=== PATIENT | male | born 1955 | race Caucasian/White ===

== ENCOUNTER 2020-04-28 15:31 | Emergency (ER) | payer SELFPAY ==
[~2020-04-28] VITALS: Ht 172.7 cm; Wt 70.4 kg
[~2020-04-28 15:31] MED LIST: ACET500T68 PO; ALPR0.5T PO; HYDR-3165 PO; IBUP800T19 PO; LEVO500T59 PO; OMEP20CA16 PO; PRED-220 PO; VENL75CA PO
[2020-04-28 15:35] VITALS: BP 159/93
[2020-04-28] MEDS ORDERED: IOHEXOL 300 MG/ML 75 ML VIAL. IV ONE (15:45)
--- NOTE | 2020-04-28 15:52 | PHYS DOC ---
Past History Past Medical History: Hypertension, Other Additional Past Medical Histor: ulcerative colitis Past Surgical History: Other Smoking: Non-smoker Alcohol Use: None Drug Use: Methamphetamine General Adult EDM: Chief Complaint: RECTAL BLEED HPI: HPI: 64-year-old male past medical history of ulcerative colitis and hypertension (s/p colectomy with ileal anal anastomosis -per 2015 ct a/p), presents the ED brought in by EMS with complaints of bright red blood rectal bleeding starting yesterday. Patient reports his UC was cured by surgery 11 years ago and has no routine primary care. Has not required any transfusions in the past 11 years. Does not take any routine medications. Denies any anticoagulants. Does report some associated mild lower abdominal pain. History of hemorrhoids. States he moved here two months ago from [place]. Review of Systems: Review of Systems: Constitutional: Denies fever or chills Eyes: Denies change in visual acuity HENT: Denies nasal congestion or sore throat Respiratory: Denies cough or shortness of breath Cardiovascular: Denies chest pain or edema GI: Denies melena, Hematemesis, nausea or vomiting : Denies dysuria Musculoskeletal: Denies back pain or joint pain Integument: Denies rash Neurologic: Denies headache, focal weakness or sensory changes Endocrine: Denies polyuria or polydipsia Lymphatic: Denies swollen glands Psychiatric: Denies depression or anxiety Allergies: Allergies: Allergies Coded Allergies Type Severity Reaction Last Updated Verified No Known Drug Allergies 08/18/15 No Physical Exam: PE: Constitutional: Well developed, well nourished, no acute distress, non-toxic appearance. HENT: Normocephalic, atraumatic, Eyes: EOMI, conjunctiva normal, no discharge. Neck: Normal range of motion, supple, Cardiovascular: S1/2 present, regular rhythm Lungs & Thorax: Speaking in full sentences, bilateral equal chest rise, no tachypnea or increased work of breathing Abdomen: soft, no tenderness, large scar Skin: Warm, dry, no erythema, no rash. [] Back: No tenderness, no CVA tenderness. [] Extremities: No tenderness, no cyanosis, no edema Neurologic: Alert and oriented X 3, normal motor function, normal sensory function, no focal deficits noted. [] Psychologic: Affect normal, judgement normal, mood normal. [] : Chaperoned by male RN, no individuals, no active bleeding, external nonthrombosed hemorrhoids, pt with signficant valsalva-kelsie < 1inch into rectum, yellow stool, no brbpr Current Patient Data: Vital Signs: Vital Signs Date Time Temp Pulse Resp B/P (MAP) Pulse Ox O2 Delivery O2 Flow Rate FiO2 04/28/20 15:35 98.1 84 16 159/93 (115) 99 Room Air EKG: EKG: [] Radiology/Procedures: Radiology/Procedures: IMAGING REPORT Signed PATIENT: ARETHA LI ACCOUNT: [id number] : 1955 LOCATION: ER AGE: 64 SEX: M EXAM STATUS: REG ER ORD. PHYSICIAN: GALA MURILLO DO REASON: hematochezia PROCEDURE: CT ABD PELV W/ IV CONTRST ONLY CT abdomen and pelvis with contrast PQRS statement: CT scans at this facility use dose reduction including either automated exposure control, iterative reconstructions, and /or weight based radiation dosing via mA and kV modification when appropriate to reduce radiation dose to as low as reasonably achievable. Contrast: 75 mL Omnipaque 300 intravenous contrast HISTORY: Hematochezia. History of ulcerative colitis and colectomy. Abdomen findings: 4 mm solid nodule right middle lobe image [address] chest imaging from 2016 considered benign. Lumbar scoliosis and disc bulges and disc osteophytes with spinal canal stenoses. Left L5 spondylolysis. Liver, gallbladder, pancreas, spleen, adrenal glands unremarkable. Bilateral fluid density renal cysts with densities of less than 10 units. Presumed surgical changes of total colectomy with ileoanal J-pouch anastomosis. No obstruction or inflammation the GI tract. No abdominal fluid or adenopathy. Pelvis findings: Mild distention of the bladder. Mild fluid distention of the ileoanal J-pouch. No inflammatory change of the J-pouch. Prostate and bones are unremarkable. No pelvic fluid or edema or adenopathy. IMPRESSION: 1. No acute process. Postoperative change as described above. 2. Incidental findings as described above. Electronically signed by: Lucia Esparza MD (04/28/2020 4:10 PM) [facility] [place] DICTATED AND SIGNED BY: LUCIA ESPARZA MD DATE: 04/28/20 1610 CC: LORIN PATTEN; GALA MURILLO DO ~ Heart Score: Risk Factors: Risk Factors: DM, Current or recent (<one month) smoker, HTN, HLP, family history of CAD, obesity. Risk Scores: Score 0 - 3: 2.5% MACE over next 6 weeks - Discharge Home Score 4 - 6: 20.3% MACE over next 6 weeks - Admit for Clinical Observation Score 7 - 10: 72.7% MACE over next 6 weeks - Early Invasive Strategies Course & Med Decision Making: Course & Med Decision Making Pertinent Labs and Imaging studies reviewed. (See chart for details) Concern for hematochezia suspect possible colitis related to hemorrhoids, no gross hematuria. H/H stable from 2017. Patient hemodynamically stable with mild hypertension but significantly symptoms of endorgan damage. CT imaging with no abscess or fistula. Strict ED return precautions were given for persistent or brisk rectal bleeding, melena, severe abdominal or back pain, chest pain, confusion or exertional dyspnea. Encouraged urgent outpatient follow-up with PMD and GI. Life-threatening processes were considered but are low suspicion at this time, given history and physical exam. Pt was educated on all prescription medications and adverse effects. All patient's questions were answered and pt was stable at time of discharge. Life/limb-threatening differential includes but is not limited to, aortic dissection, aortic aneurysm, acute coronary syndrome, surgical abdomen (appendicitis, cholecystitis, ischemic bowel, strangulated hernia, etc), bowel obstruction or volvulus, bladder outlet obstruction, gastrointestinal bleeding, inflammatory bowel disease, peptic ulcer disease, sepsis, diverticular disease, ureterolithiasis, nephrolithiasis, ovarian or testicular torsion, ectopic , vaginal hemorrhage, or genitourinary infection. I spoken with the patient and her caregivers. I explained the patient's condition, diagnoses and treatment plan based on the information available to me at this time. I have answered the patient and her caregiver's questions and addressed any concerns. The patient and her caregivers have a good understanding of patient's diagnosis, condition and treatment plan as can be expected at this point. Vital signs have been stable. Patient's condition is stable and appropriate for discharge from the emergency department. Patient will pursue further outpatient evaluation with primary care physician or other designated or consulting physician as outlined in the discharge instructions. The patient and/or caregivers are agreeable to this plan of care and follow-up instructions have been explained in detail. The patient and/or caregivers have received these instructions in written form and have expressed an understanding of the discharge instructions. The patient and/or caregivers are aware that any significant change of condition or worsening of symptoms should prompt immediate return to this or the closest emergency department or call to 911Parth Kay Disclaimer: Rahul Disclaimer: This electronic medical record was generated, in whole or in part, using a voice recognition dictation system. Departure Departure: Impression: Primary Impression: Hematochezia Additional Impression: External hemorrhoids without complication Disposition: 01 DC HOME SELF CARE/HOMELESS Condition: STABLE Referrals: LORIN PATTEN (PCP) in 1 week for repeat hemoglobin Patient Instructions: Rectal Bleeding Additional Instructions: FOLLOW UP WITH GASTROENTEROLOGY: [address], [address], [place] [address] EMERGENCY DEPARTMENT GENERAL DISCHARGE INSTRUCTIONS Thank you for coming to [facility] (ED) today and trusting us with you care. We trust that you had a positivie experience in our Emergency Department. If you wish to speak to the department management, you may call the director at [phone]. YOUR FOLLOW UP INSTRUCTIONS ARE FOLLOWS: 1. Do you have a private Doctor? If you do not have a private doctor, please ask for a resource list of physicians or clinics that may be able to assist you with follow up care. 2. The Emergency Physician has interpreted your x-rays. The X-Ray specialist will also review them. If there is a change in the findings, you will be notified in 48 hours when at all possible. 3. A lab test or culture has been done, your results will be reviewed and you will be notified if you need a change in treatment. ADDITIONAL INSTRUCTIONS AND INFORMATION: 1. Your care today has been supervised by a physician who is specially trained in emergency care. Many problems require more than one evaluation for a complete diagnosis and treatment. We recommend that you schedule your follow up appointment as recommended to ensure complete treatment of you illness or injury. If you are unable to obtain follow up care and continue to have a problem, or if your condition worsens, we recommend that you return to the ED. 2. We are not able to safely determine your condition over the phone nor are we able to give sound medical advice over the phone. For these safety reasons, if you call for medical advice we will ask you to come to the ED for further evaluation. 3. If you have any questions regarding these discharge instructions please call the ED at [phone]. SAFETY INFORMATION: In the interest of safety, wellness, and injury prevention; we encourage you to wear your sealbelt, if you smoke; quite smoking, and we encourage family to use a protective helmet for bicycling and other sporting events that present an increased risk for head injury. IF YOUR SYMPTOMS WORSEN OR NEW SYMPTOMS DEVELOP, OR YOU HAVE CONCERNS ABOUT YOUR CONDITION; OR IF YOUR CONDITION WORSENS WHILE YOU ARE WAITING FOR YOUR FOLLOW UP APPOINTMENT; EITHER CONTACT YOUR PRIMARY CARE DOCTOR, THE PHYSICIAN WHOSE NAME AND NUMBER YOU WERE GIVEN, OR RETURN TO THE ED IMMEDIATELY. GALA CASTILLO DO Apr 28, 2020 15:52
[2020-04-28 16:07] LABS: BASO % 1 % (0-3); EOS # 0.2 x10^3/uL (0.0-0.7); EOS % 4 % (0-3); HEMATOCRIT 39.5 % (39.0-53.0); HEMOGLOBIN 12.9 g/dL (13.0-17.5); LYMPH # 2.1 x10^3/uL (1.0-4.8); LYMPH % 33 % (24-48); MEAN CORPUSCULAR HEMOGLOBIN 30 pg (25-35); MEAN CORPUSCULAR HGB CONC 33 g/dL (31-37); MEAN CORPUSCULAR VOLUME 91 fL (79-100); MONO # 0.6 x10^3/uL (0.0-1.1); MONO % 9 % (0-9); NEUT # 3.5 x10^3uL (1.8-7.7); NEUT % 54 % (31-73); PLATELET COUNT 221 x10^3/uL (140-400); RED BLOOD COUNT 4.35 x10^6/uL (4.30-5.70); RED CELL DISTRIBUTION WIDTH 15.1 % (11.5-14.5); WHITE BLOOD COUNT 6.5 x10^3/uL (4.0-11.0)
[2020-04-28 16:08] LABS: FECAL OB PT POSITIVE (NEG)
[2020-04-28 16:11] LABS: CALCIUM 8.5 mg/dL (8.5-10.1); GFR 75.5; POTASSIUM 3.5 mmol/L (3.5-5.1)
--- NOTE | 2020-04-28 16:12 | RAD ---
CT abdomen and pelvis with contrast PQRS statement: CT scans at this facility use dose reduction including either automated exposure control, iterative reconstructions, and /or weight based radiation dosing via mA and kV modification when appropriate to reduce radiation dose to as low as reasonably achievable. Contrast: 75 mL Omnipaque 300 intravenous contrast HISTORY: Hematochezia. History of ulcerative colitis and colectomy. Abdomen findings: 4 mm solid nodule right middle lobe image [address] chest imaging from 2016 considered benign. Lumbar scoliosis and disc bulges and disc osteophytes with spinal canal stenoses. Left L5 spondylolysis. Liver, gallbladder, pancreas, spleen, adrenal glands unremarkable. Bilateral fluid density renal cysts with densities of less than 10 units. Presumed surgical changes of total colectomy with ileoanal J-pouch anastomosis. No obstruction or inflammation the GI tract. No abdominal fluid or adenopathy. Pelvis findings: Mild distention of the bladder. Mild fluid distention of the ileoanal J-pouch. No inflammatory change of the J-pouch. Prostate and bones are unremarkable. No pelvic fluid or edema or adenopathy. IMPRESSION: 1. No acute process. Postoperative change as described above. 2. Incidental findings as described above. Electronically signed by: Oswaldo Esparza MD (04/28/2020 4:10 PM) [facility]
[2020-04-28 16:17] LABS: ALBUMIN 3.5 g/dL (3.4-5.0); ALBUMIN/GLOBULIN RATIO 1.1 (1.0-1.7); TOTAL BILIRUBIN 0.2 mg/dL (0.2-1.0); TOTAL PROTEIN 6.6 g/dL (6.4-8.2)
== END 2020-04-28 16:56 | disposition home or self-care (01) ==
LOC: ER 15:31
DX: K64.4 Residual hemorrhoidal skin tags (principal); K92.1 Melena; I10 Essential (primary) hypertension; F15.10 Other stimulant abuse, uncomplicated; Z90.49 Acquired absence of other specified parts of digestive tract
CPT/HCPCS: 36415; 74177; 80053; 82274; 85025; 85610; 85730; 99285; Q9967

== ENCOUNTER 2020-06-10 23:42 | Emergency (ER) | payer SELFPAY ==
[~2020-06-10] VITALS: Ht 172.7 cm; Wt 66.6 kg
--- NOTE | 2020-06-11 00:07 | PHYS DOC ---
Past History Past Medical History: Hypertension, Other Additional Past Medical Histor: ulcerative colitis Past Surgical History: Other (Diverging colectomy 2/2 ulcerative colitis) Smoking: Non-smoker Alcohol Use: None Drug Use: Methamphetamine Adult General HPI HPI Patient is a 64-year-old male [facility]. This is an acute on chronic problem. Nothing known makes better or worse. Patient has history of ulcerative colitis with significant abdominal surgeries in the past which sounds like diverting colostomy with subsequent takedown back to rectum. He was covered in outpatient setting by primary care physician and electromechanical inspector but has not seen a electromechanical inspector in numerous years, last lower endoscopy performed approximately 10 years ago around the time of his surgery. Only medical problem at present is hypertension, no other issues. Not on any blood thinners. States he noticed on and off blood coming from rectum during bowel movements yesterday. States he has seen both light and darker colored blood that is present on both his toilet paper and in stool, states it is painful to wipe. He is unsure if this is consistent with prior ulcerative colitis flareups or not. Bleeding has been mild but has continued for past 24 hours intermittently only when defecating which concerned him prompting him to come in for evaluation. There is no fever, COVID-19 contact, dizziness, lightheadedness, falls, syncope, chest pain, shortness of breath, he admits vague 3/10 severity left lower quadrant abdominal pain without any nausea, no urinary symptoms, no constipation or other changes with defecation. He does not abuse alcohol, denies any other illicit dr ug use Review of Systems Review of Systems Fourteen body systems of review of systems have been reviewed. See HPI for pertinent positives and negative responses, other al all other systems are negative, non-pertinent or non-contributory Allergies Allergies Allergies Coded Allergies Type Severity Reaction Last Updated Verified No Known Drug Allergies 08/18/15 No Physical Exam Physical Exam Constitutional: Well developed, well nourished, no acute distress, non-toxic appearance. [place] hospital bed HENT: Normocephalic, atraumatic, bilateral external ears normal, oropharynx moist, no oral exudates, nose normal. Eyes: PERRLA, EOMI, conjunctiva normal, no discharge. Neck: Normal range of motion, no tenderness, supple, no stridor. Cardiovascular: Heart rate regular, sinus rhythm, no murmurs rubs or gallops Lungs & Thorax: Bilateral breath sounds clear to auscultation Abdomen: Bowel sounds normal, soft, no tenderness, no masses, no pulsatile masses. Nonsurgical abdomen, no peritoneal signs. Rectal exam performed, significant for x2 external hemorrhoids which are nonthrombosed, anal sphincter intact, no other palpable abnormalities within rectal vault Skin: Warm, dry, no erythema, no rash. Back: No tenderness, no CVA tenderness. Extremities: No tenderness, no cyanosis, no clubbing, ROM intact, no edema. Neurologic: Alert and oriented X 3, grossly normal motor & sensory function, no focal deficits noted. Unremarkable gait Psychologic: Affect normal, judgement normal, mood normal. Current Patient Data Vital Signs Vital Signs Date Time Temp Pulse Resp B/P (MAP) Pulse Ox O2 Delivery O2 Flow Rate FiO2 06/10/20 23:45 98.0 58 20 163/85 (111) 100 Room Air Lab Results Laboratory Tests Test 06/11/20 00:02 White Blood Count 7.3 x10^3/uL Red Blood Count 4.60 x10^6/uL Hemoglobin 13.7 g/dL Hematocrit 41.3 % Mean Corpuscular Volume 90 fL Mean Corpuscular Hemoglobin 30 pg Mean Corpuscular Hemoglobin Concent 33 g/dL Red Cell Distribution Width 14.1 % Platelet Count 254 x10^3/uL Neutrophils (%) (Auto) 62 % Lymphocytes (%) (Auto) 31 % Monocytes (%) (Auto) 8 % Stool Occult Blood Negative Sodium Level 137 mmol/L Potassium Level 3.6 mmol/L Chloride Level 102 mmol/L Carbon Dioxide Level 25 mmol/L Anion Gap 10 Blood Urea Nitrogen 10 mg/dL Creatinine 1.2 mg/dL Estimated GFR (Cockcroft-Gault) 61.1 Glucose Level 101 mg/dL Calcium Level 8.9 mg/dL EKG EKG [] Radiology/Procedures Radiology/Procedures [] Heart Score HEART Score for Chest Pain: HEART Score for Chest Pain Response (Comments) Value History Slighlty/Non-Suspicious 0 Age >45 - < 65 1 Risk Factors 1 or 2 Risk Factors 1 Total 2 Risk Factors: Risk Factors: DM, Current or recent (<one month) smoker, HTN, HLP, family hi story of CAD, obesity. Risk Scores: Risk Factors: DM, Current or recent (<one month) smoker, HTN, HLP, family history of CAD, obesity. Course & Med Decision Making Course & Med Decision Making Discussed with the patient all findings and diagnostic testing. I discussed most likely diagnosis of rectal bleeding, likely due to external hemorrhoids noticed on physical exam. Patient hemodynamically stable, physical exam nonconcerning, I discussed little utility in further diagnostic work-up in ER setting I stressed need for close outpatient follow-up to review today's ER visit. Strict return precautions were also discussed at length with good understanding by patient. Patient voiced understanding and agreement with the plan. Patient knows to come back for repeat evaluation if concerning signs or symptoms present prior to outpatient follow-up. Hemodynamically stable, ambulatory and well- appearing at time of disposition. Dragon Disclaimer Dragon Disclaimer This electronic medical record was generated, in whole or in part, using a voice recognition dictation system. Departure Departure: Impression: Primary Impression: Rectal bleeding Disposition: 01 DC HOME SELF CARE/HOMELESS Condition: GOOD Referrals: LORIN PATTEN (PCP) Patient Instructions: Hemorrhoids Additional Instructions: You were seen for rectal bleeding. As discussed, likely sources your external hemorrhoids. With that said, this might be an acute presentation of more concerning pathology especially given your history of ulcerative colitis status post serious abdominal surgeries. Your vitals, physical exam and diagnostic work-up in ER were nonconcerning for any emergent and/or surgical issues. You should avoid any alcohol or NSAIDS until you follow up with your PCP in addition to the GI clinic. Return to the ED if you develop heavy bleeding, fever, pain, lightheadedness, chest pain, shortness of breath, black/bloody vomiting, or any other new or concerning symptoms. You need to call the GI clinic to schedule your follow up appointment. They will schedule you a colonoscopy or will discuss other options for you at that time to look for the source of bleeding and rule out cancer or other serious causes of bleeding. JANA WHALEN DO Jun 11, 2020 00:07
[2020-06-11 00:18] LABS: CALCIUM 8.9 mg/dL (8.5-10.1); CREATININE 1.2 mg/dL (0.7-1.3); GFR 61.1; POTASSIUM 3.6 mmol/L (3.5-5.1)
[2020-06-11 00:20] LABS: HEMOGLOBIN 13.7 g/dL (13.0-17.5); WHITE BLOOD COUNT 7.3 x10^3/uL (4.0-11.0)
[2020-06-11 00:21] LABS: HEMATOCRIT 41.3 % (39.0-53.0); MEAN CORPUSCULAR HEMOGLOBIN 30 pg (25-35); MEAN CORPUSCULAR HGB CONC 33 g/dL (31-37); MEAN CORPUSCULAR VOLUME 90 fL (79-100); PLATELET COUNT 254 x10^3/uL (140-400); RED CELL DISTRIBUTION WIDTH 14.1 % (11.5-14.5)
[2020-06-11 00:22] LABS: LYMPH % 31 % (24-48); MONO % 8 % (0-9); NEUT % 62 % (31-73)
[2020-06-11 00:24] LABS: FECAL OB PT NEGATIVE (NEG)
[2020-06-11 00:25] VITALS: BP 155/88
== END 2020-06-11 00:47 | disposition home or self-care (01) ==
LOC: ER 23:42
DX: K62.5 Hemorrhage of anus and rectum (principal); K64.4 Residual hemorrhoidal skin tags; R10.32 Left lower quadrant pain; I10 Essential (primary) hypertension
CPT/HCPCS: 36415; 80048; 82274; 85025; 99284

== ENCOUNTER 2020-06-22 16:32 | Emergency (ER) | payer SELFPAY ==
[~2020-06-22] VITALS: Ht 172.7 cm; Wt 68.3 kg
[2020-06-22 17:49] LABS: BASO % 1 % (0-3); EOS # 0.4 x10^3/uL (0.0-0.7); EOS % 6 % (0-3); HEMATOCRIT 40.9 % (39.0-53.0); HEMOGLOBIN 13.4 g/dL (13.0-17.5); LYMPH # 1.7 x10^3/uL (1.0-4.8); LYMPH % 27 % (24-48); MEAN CORPUSCULAR HEMOGLOBIN 29 pg (25-35); MEAN CORPUSCULAR HGB CONC 33 g/dL (31-37); MEAN CORPUSCULAR VOLUME 90 fL (79-100); MONO # 0.3 x10^3/uL (0.0-1.1); MONO % 6 % (0-9); NEUT # 3.6 x10^3uL (1.8-7.7); NEUT % 60 % (31-73); PLATELET COUNT 221 x10^3/uL (140-400); RED BLOOD COUNT 4.55 x10^6/uL (4.30-5.70); RED CELL DISTRIBUTION WIDTH 14.9 % (11.5-14.5); WHITE BLOOD COUNT 6.1 x10^3/uL (4.0-11.0)
[2020-06-22 17:52] LABS: CALCIUM 8.7 mg/dL (8.5-10.1); GFR 75.5; POTASSIUM 4.1 mmol/L (3.5-5.1)
[2020-06-22] MEDS ORDERED: IV NORMAL SALINE 1,000ML 1,000 ML IV ONE (18:00)
[2020-06-22] MEDS ORDERED: ONDANSETRON PF 4 MG/2 ML VIAL. IVP ONE (18:00)
[2020-06-22] MEDS ORDERED: MORPHINE SULFATE 4 MG/ML DISP.SYRIN. IV ONE ×2 (18:00→19:15)
--- NOTE | 2020-06-22 18:13 | EKG ---
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
--- NOTE | 2020-06-22 18:25 | PHYS DOC ---
Past History Past Medical History: Other Additional Past Medical Histor: Ulcerative colitis Past Surgical History: Other Additional Past Surgical Histo: abdominal surgery with partial intestinal removal Smoking: Non-smoker Alcohol Use: None Drug Use: Methamphetamine General Adult EDM: Chief Complaint: WEAKNESS/GENERALIZED HPI: HPI: Patient is a 64 year old male who presents with abdominal pain and bright red rectal bleeding for the last couple of days. Patient has a history of UC and bowel resection 14 years ago. Patient denies n/v/d or fever. Reporting pain 01/18.Patient denies any other medical history. Review of Systems: Review of Systems: Constitutional: Denies fever or chills Eyes: Denies change in visual acuity HENT: Denies nasal congestion or sore throat Respiratory: Denies cough or shortness of breath Cardiovascular: Denies chest pain or edema GI: Reports abdominal pain,rectal pain, bright red rectal bleeding, denies n/v/d : Denies dysuria Musculoskeletal: Denies back pain or joint pain Integument: Denies rash Neurologic: Denies headache, focal weakness or sensory changes Endocrine: Denies polyuria or polydipsia Lymphatic: Denies swollen glands Psychiatric: Denies depression or anxiety Current Medications: Current Meds: Current Medications Medications (Trade) Dose Ordered Sig/Celeste Start Time Stop Time Status Last Admin Dose Admin Morphine Sulfate (Morphine 4mg Syringe) 4 mg 1X ONCE 06/22/20 18:00 06/22/20 18:01 DC 06/22/20 18:11 4 MG Ondansetron HCl (Zofran) 4 mg 1X ONCE 06/22/20 18:00 06/22/20 18:01 DC 06/22/20 18:10 4 MG Sodium Chloride 1,000 ml @ 1,000 mls/hr 1X ONCE 06/22/20 18:00 06/22/20 18:59 Allergies: Allergies: Allergies Coded Allergies Type Severity Reaction Last Updated Verified No Known Drug Allergies 06/11/20 No Physical Exam: PE: Constitutional: Well developed, well nourished, no acute distress, non-toxic appearance. [] HENT: Normocephalic, atraumatic, bilateral external ears normal, oropharynx moist, no oral exudates, nose normal. [] Eyes: PERRLA, EOMI, conjunctiva normal, no discharge. [] Neck: Normal range of motion, no tenderness, supple, no stridor. [] Cardiovascular:Heart rate regular rhythm, no murmur [] Lungs & Thorax: Bilateral breath sounds clear to auscultation [] Abdomen: Bowel sounds normal, soft, no tenderness, no masses, no pulsatile masses. [] Skin: Warm, dry, no erythema, no rash. [] Back: No tenderness, no CVA tenderness. [] Extremities: No tenderness, no cyanosis, no clubbing, ROM intact, no edema. [] Neurologic: Alert and oriented X 3, normal motor function, normal sensory function, no focal deficits noted. [] Psychologic: Affect normal, judgement normal, mood normal. [] Current Patient Data: Labs: Laboratory Tests Test 06/22/20 16:55 White Blood Count 6.1 x10^3/uL (4.0-11.0) Red Blood Count 4.55 x10^6/uL (4.30-5.70) Hemoglobin 13.4 g/dL (13.0-17.5) Hematocrit 40.9 % (39.0-53.0) Mean Corpuscular Volume 90 fL (79-100) Mean Corpuscular Hemoglobin 29 pg (25-35) Mean Corpuscular Hemoglobin Concent 33 g/dL (31-37) Red Cell Distribution Width 14.9 % (11.5-14.5) H Platelet Count 221 x10^3/uL (140-400) Neutrophils (%) (Auto) 60 % (31-73) Lymphocytes (%) (Auto) 27 % (24-48) Monocytes (%) (Auto) 6 % (0-9) Eosinophils (%) (Auto) 6 % (0-3) H Basophils (%) (Auto) 1 % (0-3) Neutrophils # (Auto) 3.6 x10^3uL (1.8-7.7) Lymphocytes # (Auto) 1.7 x10^3/uL (1.0-4.8) Monocytes # (Auto) 0.3 x10^3/uL (0.0-1.1) Eosinophils # (Auto) 0.4 x10^3/uL (0.0-0.7) Basophils # (Auto) 0.0 x10^3/uL (0.0-0.2) Sodium Level 139 mmol/L (136-145) Potassium Level 4.1 mmol/L (3.5-5.1) Chloride Level 106 mmol/L (98-107) Carbon Dioxide Level 24 mmol/L (21-32) Anion Gap 9 (6-14) Blood Urea Nitrogen 16 mg/dL (8-26) Creatinine 1.0 mg/dL (0.7-1.3) Estimated GFR (Cockcroft-Gault) 75.5 Glucose Level 111 mg/dL (70-99) H Calcium Level 8.7 mg/dL (8.5-10.1) Vital Signs: Vital Signs Date Time Temp Pulse Resp B/P (MAP) Pulse Ox O2 Delivery O2 Flow Rate FiO2 06/22/20 18:11 Room Air 06/22/20 16:40 98.3 67 16 140/64 (89) 98 EKG: EKG: [] Radiology/Procedures: Radiology/Procedures: []Examination: CT of the abdomen pelvis without contrast HISTORY: History of bloody stools, left lower quadrant abdominal pain COMPARISON: 04/28/2020 TECHNIQUE: Axial CT images of the abdomen pelvis were performed without contrast. Coronal and sagittal reformats performed Exposure: One or more of the following individualized dose reduction techniques were utilized for this examination: 1. Automated exposure control 2. Adjustment of the mA and/or kV according to patient size 3. Use of iterative reconstruction technique FINDINGS: 4 mm nodule right middle lobe of the lung. Linear atelectasis right lung base. No evidence of free air identified in the abdomen The evaluation of the solid organs is limited due to lack of IV contrast. The evaluation of bowel is limited due to lack of oral contrast. The visualized noncontrasted liver, spleen, adrenals grossly appears unremarkable. The gallbladder is mildly distended. Mild fluid distended small bowel loops. Surgical changes of total colectomy with ileoanal J-pouch anastomosis identified. There is mild fat stranding identified about the J-pouch. Urinary bladder is mildly distended Bilateral renal cysts are unchanged. Moderate degenerative changes lumbar spine most at L2-L3 vertebral level. IMPRESSION: 1. Surgical changes of total colectomy with ileoanal J- identified. There is mild fat stranding identified about the J-pouch, nonspecific could be postsurgical changes or inflammatory changes. 2. Mild fluid distended small bowel loops could be due to ileus or enteritis. 3. 4 mm nodule right middle lobe of the lung. Follow-up per Fleischner Society guidelines with a follow-up CT in 6-12 months. 4. Bilateral renal cysts. Electronically signed by: Tyrone Miller MD (06/22/2020 7:04 PM) [id number] Heart Score: Risk Factors: Risk Factors: DM, Current or recent (<one month) smoker, HTN, HLP, family history of CAD, obesity. Risk Scores: Score 0 - 3: 2.5% MACE over next 6 weeks - Discharge Home Score 4 - 6: 20.3% MACE over next 6 weeks - Admit for Clinical Observation Score 7 - 10: 72.7% MACE over next 6 weeks - Early Invasive Strategies Course & Med Decision Making: Course & Med Decision Making Pertinent Labs and Imaging studies reviewed. (See chart for details) []Patient is a 64 year old male who presents with abdominal pain and bright red rectal bleeding for the last couple of days. Patient has a history of UC and bowel resection 14 years ago. Patient denies n/v/d or fever. Patient denies any other medical history. Will order occult, CT abdomen and pelvis. Patient given morphine and zofran for pain and nausea. All labs unremarkable. Hgb negative for acute blood loss. CT abdomen Surgical changes of total colectomy with ileoanal J- identified. There is mild fat stranding identified about the J-pouch, nonspecific could be postsurgical changes or inflammatory changes.Mild fluid distended small bowel loops could be due to ileus or enteritis.4 mm nodule right middle lobe of the lung. Follow-up per Fleischner Society guidelines with a follow-up CT in 6-12 months.Bilateral renal cysts. Will discharge home with antibiotics and pain medication and steroids. Patient to follow up with GI and to return with worsening symptoms. Patients pain is controlled and he is hemodynamically stable. Patient able to ambulate on his own leaving ED. Dragon Disclaimer: Rahul Disclaimer: This electronic medical record was generated, in whole or in part, using a voice recognition dictation system. Departure Departure: Impression: Primary Impression: Abdominal pain Qualified Codes: R10.84 - Generalized abdominal pain Additional Impression: Diverticulitis Disposition: 01 DC HOME SELF CARE/HOMELESS Condition: GOOD Referrals: LAURA RANKIN MD Patient Instructions: Abdominal Pain Additional Instructions: EMERGENCY DEPARTMENT GENERAL DISCHARGE INSTRUCTIONS Thank you for coming to [facility] (ED) today and trusting us with you care. We trust that you had a positivie experience in our Emergency Department. If you wish to speak to the department management, you may call the director at [phone]. YOUR FOLLOW UP INSTRUCTIONS ARE FOLLOWS: 1. Do you have a private Doctor? If you do not have a private doctor, please ask for a resource list of physicians or clinics that may be able to assist you with fo llow up care. 2. The Emergency Physician has interpreted your x-rays. The X-Ray specialist will also review them. If there is a change in the findings, you will be notified in 48 hours when at all possible. 3. A lab test or culture has been done, your results will be reviewed and you will be notified if you need a change in treatment. ADDITIONAL INSTRUCTIONS AND INFORMATION: 1. Your care today has been supervised by a physician who is specially trained in emergency care. Many problems require more than one evaluation for a complete diagnosis and treatment. We recommend that you schedule your follow up appointment as recommended to ensure complete treatment of you illness or injury. If you are unable to obtain follow up care and continue to have a problem, or if your condition worsens, we recommend that you return to the ED. 2. We are not able to safely determine your condition over the phone nor are we able to give sound medical advice over the phone. For these safety reasons, if you call for medical advice we will ask you to come to the ED for further evaluation. 3. If you have any questions regarding these discharge instructions please call the ED at [phone]. SAFETY INFORMATION: In the interest of safety, wellness, and injury prevention; we encourage you to wear your sealbelt, if you smoke; quite smoking, and we encourage family to use a protecti ve helmet for bicycling and other sporting events that present an increased risk for head injury. IF YOUR SYMPTOMS WORSEN OR NEW SYMPTOMS DEVELOP, OR YOU HAVE CONCERNS ABOUT YOUR CONDITION; OR IF YOUR CONDITION WORSENS WHILE YOU ARE WAITING FOR YOUR FOLLOW UP APPOINTMENT; EITHER CONTACT YOUR PRIMARY CARE DOCTOR, THE PHYSICIAN WHOSE NAME AND NUMBER YOU WERE GIVEN, OR RETURN TO THE ED IMMEDIATELY. Scripts Hydrocodone/Acetaminophen (Hydrocodone-Acetamin 5-325 mg) 1 Each Tablet 1 EACH PO Q4-6HRS PRN for PAIN for 4 Days, #20 TAB Prov: JOHANNY LOPEZ PANEL MONITOR 06/22/20 Prednisone (PREDNISONE) 50 Mg Tablet 50 MG PO DAILY for inflammation for 5 Days, #5 TAB Prov: JOHANNY LOPEZ PANEL MONITOR 06/22/20 Ciprofloxacin (CIPRO) 500 Mg/5 Ml Josseline.mc.rec 500 MG PO BID for diverticulitis for 10 Days, #20 MISC Prov: JOHANNY LOPEZ PANEL MONITOR 06/22/20 Metronidazole (METRONIDAZOLE) 500 Mg Tablet 500 MG PO Q8HRS for diverticulitis for 10 Days, #30 TAB Prov: JOHANNY LOPEZ PANEL MONITOR 06/22/20 JOHANNY LOPEZ APRN Jun 22, 2020 18:25
--- NOTE | 2020-06-22 19:07 | RAD ---
Examination: CT of the abdomen pelvis without contrast HISTORY: History of bloody stools, left lower quadrant abdominal pain COMPARISON: 04/28/2020 TECHNIQUE: Axial CT images of the abdomen pelvis were performed without contrast. Coronal and sagitta l reformats performed Exposure: One or more of the following individualized dose reduction techniques were utilized for thi s examination: 1. Automated exposure control 2. Adjustment of the mA and/or kV according to patient size 3. Use of iterative reconstruction technique FINDINGS: 4 mm nodule right middle lobe of the lung. Linear atelectasis right lung base. No evidence of free ai r identified in the abdomen The evaluation of the solid organs is limited due to lack of IV contrast. The evaluation of bowel is limited due to lack of oral contrast. The visualized noncontrasted liver, spleen, adrenals grossly ap pears unremarkable. The gallbladder is mildly distended. Mild fluid distended small bowel loops. Surg ical changes of total colectomy with ileoanal J-pouch anastomosis identified. There is mild fat stran ding identified about the J-pouch. Urinary bladder is mildly distended Bilateral renal cysts are unchanged. Moderate degenerative changes lumbar spine most at L2-L3 vertebr al level. IMPRESSION: 1. Surgical changes of total colectomy with ileoanal J- identified. There is mild fat stranding iden tified about the J-pouch, nonspecific could be postsurgical changes or inflammatory changes. 2. Mild fluid distended small bowel loops could be due to ileus or enteritis. 3. 4 mm nodule right middle lobe of the lung. Follow-up per Fleischner Society guidelines with a fol low-up CT in 6-12 months. 4. Bilateral renal cysts. Electronically signed by: Tyrone Miller MD (06/22/2020 7:04 PM) [id number]
[2020-06-22] MEDS ORDERED: METR-34 PO (19:49)
[2020-06-22] MEDS ORDERED: PRED50TA PO (19:49)
[2020-06-22] MEDS ORDERED: CIPR500S2 PO (19:49)
[2020-06-22] MEDS ORDERED: HYDR-2759 PO (19:49)
[2020-06-22 19:54] VITALS: BP 129/45
== END 2020-06-22 20:08 | disposition home or self-care (01) ==
LOC: ER 16:32
DX: K57.92 Diverticulitis of intestine, part unspecified, without perforation or abscess without bleeding (principal); R10.84 Generalized abdominal pain; F15.10 Other stimulant abuse, uncomplicated
CPT/HCPCS: 36415; 74176; 80048; 83605; 85025; 86850; 86900; 86901; 93005; 96361; 96374; 96375; 96376; 99285; J2270; J2405; J7030

== ENCOUNTER 2020-06-24 15:01 | Emergency (ER) | payer SELFPAY ==
[~2020-06-24] VITALS: Ht 172.7 cm; Wt 68.3 kg
[2020-06-24 15:01] VITALS: BP 157/100
[~2020-06-24 15:01] MED LIST changes: +CIPR500S2 PO; +HYDR-2759 PO; +METR-34 PO; +PRED50TA PO
--- NOTE | 2020-06-24 15:27 | PHYS DOC ---
Past History Past Medical History: Other Additional Past Medical Histor: Ulcerative colitis Past Surgical History: Other Additional Past Surgical Histo: abdominal surgery with partial intestinal removal Smoking: Non-smoker Alcohol Use: None Drug Use: Methamphetamine Adult General Chief Complaint Chief Complaint: RE[facility]AL BLEED [facility] HPI Patient is a male with a history of ulcerative colitis presenting to the ED today complaining of rectal bleed for a week. Patient states he has had multiple surgeries to remove part of his colon, surgeries were done years back. He states he has had intermittent episodes of rectal bleeding for a week. He reports he was seen in the ED 3 days ago and was already worked up. He states today his biggest complaint is he ran out of his pain medicine and would like a refill until he sees the GI doctor next week. Denies any nausea vomiting. Denies anything specifically exacerbating or relieving his abdominal pain. Review of Systems Review of Systems Constitutional: Denies fever or chills [] Eyes: Denies change in visual acuity, redness, or eye pain [] HENT: Denies nasal congestion or sore throat [] Respiratory: Denies cough or shortness of breath [] Cardiovascular: No additional information not addressed in HPI [] GI: Reports abdominal pain, rectal bleeding, denies nausea, vomiting : Denies dysuria or hematuria [] Musculoskeletal: Denies back pain or joint pain [] Integument: Denies rash or skin lesions [] Neurologic: Denies headache, focal weakness or sensory changes [] All other systems were reviewed and found to be within normal limits, except as documented in this note. Allergies Allergies Allergies Coded Allergies Type Severity Reaction Last Updated Verified No Known Drug Allergies 06/24/20 No Physical Exam Physical Exam Constitutional: Well developed, well nourished, no acute distress, non-toxic appearance. [] HENT: Normocephalic, atraumatic, bilateral external ears normal, oropharynx moist, no oral exudates, nose normal. [] Eyes: PERRLA, EOMI, conjunctiva normal, no discharge. [] Neck: Normal range of motion, no tenderness, supple, no stridor. [] Cardiovascular:Heart rate regular rhythm, no murmur [] Lungs & Thorax: Bilateral breath sounds clear to auscultation [] Abdomen: Old healed surgical incision noted midline abdomen. Bowel sounds normal, soft, no tenderness, no masses, no pulsatile masses. [] Skin: Warm, dry, no erythema, no rash. [] Back: No tenderness, no CVA tenderness. [] Extremities: No tenderness, no cyanosis, no clubbing, ROM intact, no edema. [] Neurologic: Alert and oriented X 3, normal motor function, normal sensory function, no focal deficits noted. [] Psychologic: Affect normal, judgement normal, mood normal. [] Current Patient Data Vital Signs Vital Signs Date Time Temp Pulse Resp B/P (MAP) Pulse Ox O2 Delivery O2 Flow Rate FiO2 06/24/20 15:01 98.1 75 18 157/100 (119) 97 EKG EKG [] Radiology/Procedures Radiology/Procedures [] Heart Score Risk Factors: Risk Factors: DM, Current or recent (<one month) smoker, HTN, HLP, family history of CAD, obesity. Risk Scores: Risk Factors: DM, Current or recent (<one month) smoker, HTN, HLP, family history of CAD, obesity. Course & Med Decision Making Course & Med Decision Making Pertinent Labs and Imaging studies reviewed. (See chart for details) This is a 64-year-old male patient with history of ulcerative colitis presenting today complaining of chronic abdominal pain and rectal bleeding for 1 week. He was seen in the ED 2 days ago and reports being worked up. He states he does not want any further work-up today. He states today he ran out of his pain medicine. He plans to see the GI doctor next week. He was checked on [facility]. Prescription for hydrocodone was given. Reminded to see the GI doctor next week. Dragon Disclaimer Dragon Disclaimer This electronic medical record was generated, in whole or in part, using a voice recognition dictation system. Departure Departure: Impression: Primary Impression: Rectal bleeding Additional Impression: Medication refill Disposition: 01 DC HOME SELF CARE/HOMELESS Condition: STABLE Referrals: LORIN PATTEN (PCP) LAURA RANKIN MD follow up next week Patient Instructions: Rectal Bleeding, [id number] Additional Instructions: Please take the prescribed pain medicine conservatively for severe pain. Try an d see the GI doctor next week. Come back to the ED at any point symptoms worsen Scripts Hydrocodone Bit/Acetaminophen (HYDROCODONE-APAP 7.5-325 ) 1 Each Tablet 1 TAB PO PRN Q6HRS PRN for PAIN, #28 TAB 0 Refills Prov: MUTUNGA,SAMUEL CONTENT PRODUCTION SPECIALIST 06/24/20 Problem Qualifiers SAMUEL HOLT APRN Jun 24, 2020 15:27
[2020-06-24] MEDS ORDERED: HYDROcodone/APAP 7.5/325MG 1 TAB TABLET PO ONE (15:30)
[2020-06-24] MEDS ORDERED: HYDR-2765 PO (15:31)
== END 2020-06-24 15:39 | disposition home or self-care (01) ==
LOC: ER 15:01
DX: K62.5 Hemorrhage of anus and rectum (principal); Z76.0 Encounter for issue of repeat prescription
CPT/HCPCS: 99283

== ENCOUNTER 2020-07-08 20:37 | Emergency (ER) | payer SELFPAY ==
[~2020-07-08] VITALS: Ht 172.7 cm; Wt 68.3 kg
[~2020-07-08 20:37] MED LIST changes: +HYDR-2765 PO
--- NOTE | 2020-07-08 20:56 | PHYS DOC ---
Past History Past Medical History: Other Additional Past Medical Histor: Ulcerative colitis Past Medical History Limited secondary to altered mental status (AVANI LOGAN DO) Past Surgical History: Other Additional Past Surgical Histo: abdominal surgery with partial intestinal removal Past Surgical History Limited secondary to altered mental status (AVANI LOGAN DO) Smoking: Quit Greater Than 1 Year Alcohol Use: Occasionally Drug Use: Methamphetamine, Opiates Social History Limited secondary to altered mental status (AVANI LOGAN DO) General Adult EDM: Chief Complaint: ALTERED MENTAL STATUS HPI: HPI: Patient is a 65 year old male who presents with acute intoxication. EMS was called from a [facility]. History is limited due patient intoxication. He did state he drank 4-5 beers today and took a few of his hydrocodone. He stated he was trying to hurt himself, and he has never tried this before. He says he is not usually a drinker. He denies any current pain, but is tearful part of the exam. He was able to tell us his full name but was unable to tell us his correct birthday. History of present illness limited secondary to intoxication. (AVANI LOGAN DO) Review of Systems: Review of Systems: Review of systems limited secondary to intoxication (AVANI LOGAN DO) Allergies: Allergies: Allergies Coded Allergies Type Severity Reaction Last Updated Verified No Known Drug Allergies 06/24/20 No (AVANI LOGAN DO) Physical Exam: PE: Constitutional: Well developed, well nourished, no acute distress, non-toxic appearance HENT: Normocephalic, atraumatic Eyes: PERRL, EOMI, conjunctiva injected bilaterally, no discharge, horizontal nystagmus noted Neck: Normal range of motion, no tenderness, supple Lungs & Thorax: No respiratory distress, equal chest rise and fall Abdomen: Soft, no tenderness Skin: Warm, dry, no rash, erythematous cheeks Extremities: No tenderness, ROM intact, no edema Neurologic: normal motor function, normal sensory function, no focal deficits noted Psychologic: Acutely intoxicated, judgment poor, reports suicidal ideation (AVANI LOGAN DO) Current Patient Data: Vital Signs: Vital Signs Date Time Temp Pulse Resp B/P (MAP) Pulse Ox O2 Delivery O2 Flow Rate FiO2 07/08/20 20:45 98.3 73 16 167/82 (110) 97 Room Air (AVANI LOGAN DO) EKG: EKG: [] (AVANI LOGAN DO) Radiology/Procedures: Radiology/Procedures: [] (AVANI LOGAN DO) Course & Med Decision Making: Course & Med Decision Making Pertinent Lab studies reviewed. (See chart for details) Wilfredo Greenberg is a 65 yo male who presents today via EMS for acute intoxication. He currently states he drank and took his medication in order to hurt himself. Suicidal precautions in place. Patient requiring sobering. Labs obtained and posted to chart. EtOH greater than 300. UDS positive for polypharmacy. P.O. vitamin and IV thiamine provided. Patient did become more restless and required dosing of IV Ativan and IM Geodon. Patient monitored with plan to have psych assessment performed once patient is clinically sober. 0600- Signout given to Dr. Mcneill for further evaluation and final disposition. (AVANI LOGAN DO) Course & Med Decision Making Assumed care of patient at checkout from Dr. Logan. On my reevaluation patient is now sober. He has no suicidal or homicidal ideations. He does not remember most of the evening. He is very apologetic about the events that took place last night. He would like to go home. At this time patient does not appear to be a harm to himself or others. He does not meet inpatient criteria for [place]. Patient's test results and vitals while in the ED were fully reviewed and discussed with the patient. Patient is stable and at this time does not need admission to the hospital. We have discussed strict return precautions and the importance of following up with their Primary Care Physician. Patient stated understanding and was given an opportunity to ask any questions. Patient is in agreement with plan. (JARRET MCNEILL MD) Dragon Disclaimer: Dragon Disclaimer: This electronic medical record was generated, in whole or in part, using a voice recognition dictation system. (AVANI LOGAN DO) Dragon Disclaimer: Complete ROS is negative unless otherwise documented in HPI (JARRET MCNEILL MD) Departure Departure: Impression: Primary Impression: Suicidal ideation Additional Impression: Alcohol intoxication Qualified Codes: F10.929 - Alcohol use, unspecified with intoxication, unspecified Disposition: 01 DC HOME SELF CARE/HOMELESS Condition: IMPROVED Referrals: LORIN PATTEN (PCP) Patient Instructions: Alcohol Intoxication AVANI LOGAN DO Jul 08, 2020 20:56 JARRET MCNEILL MD Jul 09, 2020 11:43
[2020-07-08] MEDS ORDERED: IV NORMAL SALINE 1,000ML 1,000 ML IV ONE (21:00)
[2020-07-08] MEDS ORDERED: THIAMINE INJ 100 MG in IV NORMAL SALINE 50ML 50 ML IV ONE (21:00)
[2020-07-08 21:34] LABS: BASO % 0 % (0-3); EOS # 0.4 x10^3/uL (0.0-0.7); EOS % 6 % (0-3); HEMATOCRIT 44.9 % (39.0-53.0); HEMOGLOBIN 14.7 g/dL (13.0-17.5); LYMPH # 2.9 x10^3/uL (1.0-4.8); LYMPH % 39 % (24-48); MEAN CORPUSCULAR HEMOGLOBIN 29 pg (25-35); MEAN CORPUSCULAR HGB CONC 33 g/dL (31-37); MEAN CORPUSCULAR VOLUME 89 fL (79-100); MONO # 0.6 x10^3/uL (0.0-1.1); MONO % 8 % (0-9); NEUT # 3.5 x10^3uL (1.8-7.7); NEUT % 47 % (31-73); PLATELET COUNT 205 x10^3/uL (140-400); RED BLOOD COUNT 5.03 x10^6/uL (4.30-5.70); RED CELL DISTRIBUTION WIDTH 14.7 % (11.5-14.5); WHITE BLOOD COUNT 7.4 x10^3/uL (4.0-11.0)
[2020-07-08 21:41] LABS: GFR 75.2; POTASSIUM 3.9 mmol/L (3.5-5.1)
[2020-07-08 21:43] LABS: ALBUMIN 4.1 g/dL (3.4-5.0); ALBUMIN/GLOBULIN RATIO 1.1 (1.0-1.7); MAGNESIUM 2.2 mg/dL (1.8-2.4); TOTAL BILIRUBIN 0.3 mg/dL (0.2-1.0)
[2020-07-08 21:47] LABS: ACETAMIN < 2.0 mcg/mL (10-30); ETHANOL 316 mg/dL (0-10); SALIC < 2.8 mg/dL (2.8-20.0)
[2020-07-08 22:23] LABS: BARBITURATES NEG (NEG); BENZODIAZEPINES POS (NEG); CANNABINOIDS NEG (NEG); COCAINE NEG (NEG); METHADONE POS (NEG); OPIATES NEG (NEG); PHENCYCLIDINE NEG (NEG)
[2020-07-08 22:25] LABS: AMPHETAMINE/METHAMPHETAMINE NEG (NEG)
[2020-07-08] MEDS ORDERED: ZIPRASIDONE IM 20 MG VIAL. IM ONE (23:30)
[2020-07-09] MEDS ORDERED: PRENATAL MULTIVITAMIN TABLET. PO SCH (09:00)
[2020-07-09 11:30] VITALS: BP 115/76
== END 2020-07-09 12:10 | disposition home or self-care (01) ==
LOC: ER 20:37
DX: R45.851 Suicidal ideations (principal); F10.129 Alcohol abuse with intoxication, unspecified; Z87.891 Personal history of nicotine dependence; Y90.8 Blood alcohol level of 240 mg/100 ml or more
CPT/HCPCS: 36415; 51702; 80053; 80307; 80329; 83735; 85025; 85610; 85730; 96365; 96372; 96375; 96376; 99285; G0480; J2060; J3486; J7030; 96366

== ENCOUNTER 2020-08-12 11:18 | Emergency (ER) | payer SELFPAY ==
[~2020-08-12] VITALS: Ht 172.7 cm; Wt 67.5 kg
[2020-08-12 11:18] VITALS: BP 138/65
--- NOTE | 2020-08-12 12:04 | PHYS DOC ---
Past History Past Medical History: Other Additional Past Medical Histor: Ulcerative colitis Past Surgical History: Other Additional Past Surgical Histo: abdominal surgery with partial intestinal removal Smoking: Quit Greater Than 1 Year Alcohol Use: Occasionally Drug Use: Methamphetamine, Opiates Adult General Chief Complaint Chief Complaint: BLOODY STOOL HPI HPI Patient is a 65-year-old male who comes in for unknown reasons. Patient came in via EMS and his complaint to EMS was rectal bleeding. Patient has a known h istory of ulcerative colitis and chronic rectal bleeding with abdominal pain. Upon my evaluation patient does not answer any questions. He does look at me when I introduced myself and then closes his eyes to go back to sleep. When directed again to ask what brings him to the emergency room patient states nothing. He then again closes eyes. He did not answer any further questions. Review of Systems Review of Systems Unable to obtain due to patient's refusal Allergies Allergies Allergies Coded Allergies Type Severity Reaction Last Updated Verified No Known Drug Allergies 06/24/20 No Physical Exam Physical Exam General: Awake, alert, NAD. Well Nourished, well hydrated. HEENT: Atraumatic, EOMI, PERRL, airway patent, moist oral mucosa Neck: Supple, trachea midline Respiratory: CTA bilaterally, normal effort, no wheezing/crackles CV: RRR, no murmur, cap refill <2 GI: Soft, nondistended, nontender, no masses MSK: No obvious deformities Skin: Warm, dry, intact Psych: Mild agitation, uncooperative EKG EKG [] Radiology/Procedures Radiology/Procedures [] Heart Score Risk Factors: Risk Factors: DM, Current or recent (<one month) smoker, HTN, HLP, family history of CAD, obesity. Risk Scores: Risk Factors: DM, Current or recent (<one month) smoker, HTN, HLP, family h istory of CAD, obesity. Course & Med Decision Making Course & Med Decision Making Pertinent Labs and Imaging studies reviewed. (See chart for details) Patient is a 65-year-old male who presents for possible rectal bleeding. Upon my interview and exam patient does not answer questions. When asked why he came to the emergency room patient states nothing. He is hemodynamically stable at this time. Vitals are normal. He is overall well-appearing. He ambulates without difficulty. As patient is refusing interview a medical screen screening exam was done and at this time patient does not appear to have an emergent condition. Patient will be discharged. I have stated to patient that if he would like to be examined and evaluated he can return to the emergency room. Dragon Disclaimer Dragon Disclaimer This electronic medical record was generated, in whole or in part, using a voice recognition dictation system. Departure Departure: Impression: Primary Impression: Patient refused evaluation Disposition: 01 DC HOME SELF CARE/HOMELESS Condition: STABLE Referrals: LORIN PATTEN (PCP) Patient Instructions: Medical Screening Exam JARRET VELIZ MD Aug 12, 2020 12:04
== END 2020-08-12 12:10 | disposition home or self-care (01) ==
LOC: ER 11:18
DX: K62.5 Hemorrhage of anus and rectum (principal); Z87.891 Personal history of nicotine dependence
CPT/HCPCS: 99283

== ENCOUNTER 2020-08-12 12:43 | Emergency (ER) | payer SELFPAY ==
[~2020-08-12] VITALS: Ht 172.7 cm; Wt 67.5 kg
[2020-08-12 13:05] VITALS: BP 121/65
[2020-08-12 13:39] LABS: BASO % 0 % (0-3); EOS # 0.1 x10^3/uL (0.0-0.7); EOS % 1 % (0-3); HEMATOCRIT 39.9 % (39.0-53.0); HEMOGLOBIN 12.9 g/dL (13.0-17.5); LYMPH # 0.5 x10^3/uL (1.0-4.8); LYMPH % 4 % (24-48); MEAN CORPUSCULAR HEMOGLOBIN 29 pg (25-35); MEAN CORPUSCULAR HGB CONC 32 g/dL (31-37); MEAN CORPUSCULAR VOLUME 90 fL (79-100); MONO # 0.5 x10^3/uL (0.0-1.1); MONO % 3 % (0-9); NEUT # 12.4 x10^3uL (1.8-7.7); NEUT % 92 % (31-73); PLATELET COUNT 184 x10^3/uL (140-400); RED BLOOD COUNT 4.43 x10^6/uL (4.30-5.70); RED CELL DISTRIBUTION WIDTH 13.6 % (11.5-14.5); WHITE BLOOD COUNT 13.5 x10^3/uL (4.0-11.0)
[2020-08-12 14:55] LABS: % ATYL 1 % (0-0); % BANDS 9 % (0-9); % LYMPHS 3 % (24-48); % MONOS 4 % (0-10); % SEGS 83 % (35-66); PLT ESTIMATE ADEQUATE (ADEQUATE)
--- NOTE | 2020-08-12 15:56 | PHYS DOC ---
Past History Past Medical History: Other Additional Past Medical Histor: Ulcerative colitis Past Surgical History: Other Additional Past Surgical Histo: abdominal surgery with partial intestinal removal Smoking: Quit Greater Than 1 Year Alcohol Use: None Drug Use: Methamphetamine, Opiates Adult General Chief Complaint Chief Complaint: BLOODY STOOL [facility] HPI Patient is a 65-year-old male who presents to the emergency room with rectal bleeding. Patient did present earlier today and at that time would not answer any questions. He was brought back by his fiance who states that he needs to be evaluated and patient patient is a agreed to answer questions. He states he has been having rectal bleeding on and off for the last 14 years. The last time he had surgery was 14 years ago. He does follow with a GI physician. It is unclear at this time how often he is following with a GI physician. He had initially told me that his physician was in [facility] but then told me that he had a GI physician here in the area. He states he has ongoing abdominal pain that has been chronic for quite some time. He is unable to tell me how this pain is different today. He denies any weakness or shortness of breath. Patient is a poor historian and gives very short answers. Review of Systems Review of Systems Complete ROS is negative unless otherwise documented in HPI Allergies Allergies Allergies Coded Allergies Type Severity Reaction Last Updated Verified No Known Drug Allergies 08/12/20 No Physical Exam Physical Exam General: Awake, alert, NAD. Well Nourished, well hydrated. Cooperative HEENT: Atraumatic, EOMI, PERRL, airway patent, moist oral mucosa Neck: Supple, trachea midline Respiratory: CTA bilaterally, normal effort, no wheezing/crackles CV: RRR, no murmur, cap refill <2 GI: Soft, nondistended, nontender, no masses MSK: No obvious deformities Skin: Warm, dry, intact Neuro: A&O x3, speech NL, sensory and motor grossly intact, no focal deficits, normal gait Psych: Normal affect, normal mood, not suicidal or homicidal Current Patient Data Vital Signs Vital Signs Date Time Temp Pulse Resp B/P (MAP) Pulse Ox O2 Delivery O2 Flow Rate FiO2 08/12/20 13:05 98.1 76 16 121/65 (83) 95 Room Air Lab Results Laboratory Tests Test 08/12/20 13:23 White Blood Count 13.5 x10^3/uL (4.0-11.0) H Red Blood Count 4.43 x10^6/uL (4.30-5.70) Hemoglobin 12.9 g/dL (13.0-17.5) L Hematocrit 39.9 % (39.0-53.0) Mean Corpuscular Volume 90 fL (79-100) Mean Corpuscular Hemoglobin 29 pg (25-35) Mean Corpuscular Hemoglobin Concent 32 g/dL (31-37) Red Cell Distribution Width 13.6 % (11.5-14.5) Platelet Count 184 x10^3/uL (140-400) Neutrophils (%) (Auto) 92 % (31-73) H Lymphocytes (%) (Auto) 4 % (24-48) L Monocytes (%) (Auto) 3 % (0-9) Eosinophils (%) (Auto) 1 % (0-3) Basophils (%) (Auto) 0 % (0-3) Neutrophils # (Auto) 12.4 x10^3uL (1.8-7.7) H Lymphocytes # (Auto) 0.5 x10^3/uL (1.0-4.8) L Monocytes # (Auto) 0.5 x10^3/uL (0.0-1.1) Eosinophils # (Auto) 0.1 x10^3/uL (0.0-0.7) Basophils # (Auto) 0.0 x10^3/uL (0.0-0.2) Segmented Neutrophils % 83 % (35-66) H Band Neutrophils % 9 % (0-9) Lymphocytes % 3 % (24-48) L Atypical Lymphocytes % (Manual) 1 % (0-0) H Monocytes % 4 % (0-10) Platelet Estimate Adequate (ADEQUATE) EKG EKG [] Radiology/Procedures Radiology/Procedures [] Heart Score Risk Factors: Risk Factors: DM, Current or recent (<one month) smoker, HTN, HLP, family history of CAD, obesity. Risk Scores: Risk Factors: DM, Current or recent (<one month) smoker, HTN, HLP, family history of CAD, obesity. Course & Med Decision Making Course & Med Decision Making Pertinent Labs and Imaging studies reviewed. (See chart for details) Patient is 65-year-old male who presents to the emergency room with rectal bleeding. Patient is unable to describe to me whether this is different than his chronic rectal bleeding and abdominal pain. He does not have any symptoms suggestive of symptomatic anemia. He is generally well-appearing. CBC was ordered to evaluate white blood cell count and hemoglobin. Hemoglobin is normal. He does have a mild white blood cell count but does not have a fever or any abnormal vitals. Abdomen is soft. Prior to giving results or discussing any further testing with the patient patient eloped. Rahul Disclaimer Dragon Disclaimer This electronic medical record was generated, in whole or in part, using a voice recognition dictation system. Departure Departure: Impression: Primary Impression: Rectal bleeding Disposition: 07 AMA/ELOPED/LWBS Condition: STABLE Referrals: LORIN PATTEN (PCP) JARRET VELIZ MD Aug 12, 2020 15:56
== END 2020-08-12 14:44 | disposition left against medical advice (07) ==
LOC: ER 12:43
DX: K62.5 Hemorrhage of anus and rectum (principal); G89.29 Other chronic pain; R10.9 Unspecified abdominal pain; Z87.891 Personal history of nicotine dependence
CPT/HCPCS: 36415; 85007; 85025; 99283